=== PATIENT | male | born 1975 ===

== ENCOUNTER 2020-02-24 23:48 | Observation (INO) | payer OTHER ==
[2020-02-25] MEDS ORDERED: Ondansetron 4 MG/2 ML SDV IVPUSH ONE (00:05)
[2020-02-25] MEDS ORDERED: Sodium Chloride 0.9% 10 ML Syringe FLUSH PRN (00:05)
[2020-02-25] MEDS ORDERED: Ketorolac 15 MG/ML SDV IVPUSH ONE (00:05)
[2020-02-25] MEDS ORDERED: Sodium Chloride 0.9% 2.5 ML Syringe FLUSH PRN (00:05)
--- NOTE | 2020-02-25 00:08 | EDM.PDOC ---
ED HPI GENERAL MEDICAL PROBLEM - General Chief Complaint: Genitourinary Problem Stated Complaint: VOMITTING Time Seen by Provider: 02/24/20 23:54 - History of Present Illness INITIAL COMMENTS - FREE TEXT/NARRATIVE: History of present illness: [] About a week ago the patient started having pain in the right flank. It is become colicky and severe. Sentiment and associated with diaphoresis and nausea. Patient has a history of kidney stones in the remote past not sure if he is ever had a CT. Had some kind of imaging once in the remote past. Has not taken anything for pain. The patient has it sometimes had an episode that he felt like was a kidney stone in the past with a hot shower and plenty of fluids. This will persist. Review of systems: As per history of present illness and below otherwise all systems reviewed and negative. Past medical history: As per history of present illness and as reviewed below otherwise noncontributory. Surgical history: As per history of present illness and as reviewed below otherwise noncontributory. Social history: No reported history of drug or alcohol abuse. Family history: As per history of present illness and as reviewed below otherwise noncontributory. Physical exam: Constitutional - well developed, well-nourished and in no acute distress HEENT - normocephalic, no evidence of trauma - external nose and mouth normal - no mass in neck and no JVD - mucosae moist EYES - full EOM, PERRL, no icterus - no evidence of inflammation, injection, or drainage Respiratory - no respiratory distress, equal bilateral expansion, lungs clear to auscultation and no abnormal lung sounds Cardiovascular - Regular Rhythm with S1 and S2 appreciated and no murmur, gallop or rub. GI - abdomen soft without distension or organomegaly - normal bowel sounds - no guard or rebound Musculoskeletal no gross deformity of long bones or joints - no tenderness, swelling or edema Neurologic - Alert and oriented times four - CN II-XII grossly intact - motor sensory and coordination symmetrically normal Psychiatric - appropriate mood and affect with normal thought content Hematologic - No petechiae or purpura - mucosa appropriate color and sclera not pale - normal nail bed color and refill Integument - no rash or evidence of trauma - normal turgor Diagnostics: [] Therapeutics: [] Impression: [] Plan: [] Definitive disposition and diagnosis as appropriate pending reevaluation and review of above. right lower abdomen, right flank Pain Score (Numeric/FACES): 10 - Related Data Allergies Allergy/AdvReac Type Severity Reaction Status Date / Time Penicillins Allergy Cannot Verified 02/24/20 23:55 Remember Home Meds: Home Meds Hydrocodone/Acetaminophen [[place] 10-325 Tablet] 1 each PO Q4HR PRN #20 tablet 02/25/20 [Rx] Ondansetron [Zofran ODT] 4 mg PO Q6H PRN #12 tab.dis 02/25/20 [Rx] Past Medical History - Past Health History Medical/Surgical History: Denies Medical/Surgical History Genitourinary History: Reports: Renal Calculus - Past Surgical History HEENT Surgical History: Reports: Tonsillectomy Social & Family History - Family History Family Medical History: Noncontributory - Tobacco Use Smoking Status *Q: Current Every Day Smoker Years of Tobacco use: 25 Packs/Tins Daily: 0 - Recreational Drug Use Recreational Drug Use: No ED ROS GENERAL - Review of Systems Review Of Systems: Comprehensive ROS is negative, except as noted in HPI. ED EXAM, GENERAL - Physical Exam Exam: See Below Free Text/Narrative:: My physical exam as in the HPI Course - Vital Signs Text/Narrative:: 243 patient is requiring more medicine than the stone is quite proximal. It is completely obstructing and the patient has not urinated. Discussed with Dr. Streeter and admitted to Dr. Oliveros. Last Recorded V/S: Last Vital Signs Temp 96.6 F L 02/24/20 23:52 Pulse 89 02/24/20 23:52 Resp 18 02/24/20 23:52 BP 182/120 H 02/24/20 23:52 Pulse Ox 96 02/24/20 23:52 - Orders/Labs/Meds Orders: Active Orders 24 hr Category Date Time Status Admission Status [Patient Status] [ADT] Stat ADT 02/25/20 02:40 Ordered Notify Provider Consults [RC] ASDIRECTED Care 02/25/20 02:43 Ordered Consult to Physician [CONS] Stat Cons 02/25/20 02:42 Ordered UA W/ELAINA RFLX IF INDICATED [URIN] Stat Lab 02/25/20 00:05 Ordered Sodium Chloride 0.9% [Normal Saline] 1,000 ml Med 02/25/20 02:45 Active IV ASDIRECTED Sodium Chloride 0.9% [Saline Flush] Med 02/25/20 00:05 Active 10 ml FLUSH ASDIRECTED PRN Sodium Chloride 0.9% [Saline Flush] Med 02/25/20 00:05 Active 2.5 ml FLUSH ASDIRECTED PRN Saline Lock Insert [OM.PC] Stat Oth 02/25/20 00:05 Ordered Medication Orders Sodium Chloride (Normal Saline) 1,000 mls @ 500 mls/hr IV ASDIRECTED DEVIN Sodium Chloride (Saline Flush) 10 ml FLUSH ASDIRECTED PRN PRN Reason: Keep Vein Open Sodium Chloride (Saline Flush) 2.5 ml FLUSH ASDIRECTED PRN PRN Reason: Keep Vein Open Labs: Laboratory Tests 02/25/20 02/25/20 02/25/20 Range/Units 00:01 00:01 00:01 WBC 10.36 (4.0-11.0) K/uL RBC 4.65 (4.50-5.90) M/uL Hgb 14.8 (13.0-17.0) g/dL Hct 42.2 (38.0-50.0) % MCV 90.8 (80.0-98.0) fL MCH 31.8 (27.0-32.0) pg MCHC 35.1 (31.0-37.0) g/dL RDW Std Deviation 41.0 (28.0-62.0) fl RDW Coeff of Charmaine 13 (11.0-15.0) % Plt Count 230 (150-400) K/uL MPV 10.90 (7.40-12.00) fL Neut % (Auto) 57.6 (48.0-80.0) % Lymph % (Auto) 30.5 (16.0-40.0) % [place] % (Auto) 8.7 (0.0-15.0) % Eos % (Auto) 2.7 (0.0-7.0) % Baso % (Auto) 0.5 (0.0-1.5) % Neut # (Auto) 6.0 H (1.4-5.7) K/uL Lymph # (Auto) 3.2 H (0.6-2.4) K/uL [place] # (Auto) 0.9 H (0.0-0.8) K/uL Eos # (Auto) 0.3 (0.0-0.7) K/uL Baso # (Auto) 0.1 (0.0-0.1) K/uL Sodium 141 (136-148) mmol/L Potassium 4.4 (3.5-5.1) mmol/L Chloride 106 (98-107) mmol/L Carbon Dioxide 26.3 (21.0-32.0) mmol/L BUN 18 (7.0-18.0) mg/dL Creatinine 1.3 (0.8-1.3) mg/dL Est Cr Clr Drug Dosing 77.93 mL/min Estimated GFR (MDRD) 59.4 ml/min Glucose 138 H (74-106) mg/dL Calcium 9.1 (8.5-10.1) mg/dL Total Bilirubin 0.2 (0.2-1.0) mg/dL AST 18 (15-37) IU/L ALT 40 (14-63) IU/L Alkaline Phosphatase 91 (46-116) U/L Troponin I < 0.050 (0.000-0.056) ng/mL Total Protein 7.5 (6.4-8.2) g/dL Albumin 4.5 (3.4-5.0) g/dL Globulin 3.0 (2.6-4.0) g/dL Albumin/Globulin Ratio 1.5 (0.9-1.6) Lipase 161 (73-393) U/L Meds: Medications Generic Name Dose Route Start Last Admin Trade Name Frephilip PRN Reason Stop Dose Admin Sodium Chloride 1,000 mls @ 500 mls/hr 02/25/20 02:45 Normal Saline IV ASDIRECTED DEVIN Sodium Chloride 10 ml 02/25/20 00:05 Saline Flush FLUSH ASDIRECTED PRN Keep Vein Open Sodium Chloride 2.5 ml 02/25/20 00:05 Saline Flush FLUSH ASDIRECTED PRN Keep Vein Open Discontinued Medications Generic Name Dose Route Start Last Admin Trade Name Freq PRN Reason Stop Dose Admin Hydromorphone HCl 1 mg 02/25/20 02:39 Dilaudid IVPUSH 02/25/20 02:40 ONETIME ONE Ketorolac Tromethamine 15 mg 02/25/20 00:05 02/25/20 00:20 Toradol IVPUSH 02/25/20 00:06 15 mg ONETIME ONE Administration Ondansetron HCl 4 mg 02/25/20 00:05 02/25/20 00:20 Zofran IVPUSH 02/25/20 00:06 4 mg ONETIME ONE Administration Departure - Departure Time of Disposition: 01:43 Disposition: Refer to Observation Condition: Good Clinical Impression: Kidney stone - Discharge Information Prescriptions: Hydrocodone/Acetaminophen [[place] 10-325 Tablet] 1 each PO Q4HR PRN #20 tablet PRN Reason: Pain Ondansetron [Zofran ODT] 4 mg PO Q6H PRN #12 tab.dis PRN Reason: Nausea Instructions: Kidney Stones, Renal Colic Referrals: PCP,None [Primary Care Provider] - Namrata Streeter MD [Physician] - Forms: ED Department Discharge Additional Instructions: [facility] - Primary Care [address] [place] [address] [place] [address] [facility] - Urology [address] [place] [address] The following information is given to patients seen in the emergency department who are being discharged to home. This information is to outline your options for follow-up care. We provide all patients seen in our emergency department with a follow-up referral. The need for follow-up, as well as the timing and circumstances, are variable depending upon the specifics of your emergency department visit. If you don't have a primary care physician on staff, we will provide you with a referral. We always advise you to contact your personal physician following an emergency department visit to inform them of the circumstance of the visit and for follow-up with them and/or the need for any referrals to a consulting specialist. The emergency department will also refer you to a specialist when appropriate. This referral assures that you have the opportunity for follow-up care with a specialist. All of these measure are taken in an effort to provide you with optimal care, which includes your follow-up. Under all circumstances we always encourage you to contact your private physician who remains a resource for coordinating your care. When calling for follow-up care, please make the office aware that this follow-up is from your recent emergency room visit. If for any reason you are refused follow-up, please contact the [facility] Emergency Department at and asked to speak to the emergency department charge nurse. Sepsis Event Note (ED) - Evaluation Sepsis Screening Result: No Definite Risk - Focused Exam Vital Signs: Vital Signs Temp Pulse Resp BP Pulse Ox 02/24/20 23:52 96.6 F L 89 18 182/120 H 96 - My Orders Last 24 Hours: My Active Orders 02/25/20 00:05 UA W/ELAINA RFLX IF INDICATED [URIN] Stat Sodium Chloride 0.9% [Saline Flush] 10 ml FLUSH ASDIRECTED PRN Sodium Chloride 0.9% [Saline Flush] 2.5 ml FLUSH ASDIRECTED PRN Saline Lock Insert [OM.PC] Stat 02/25/20 02:40 Admission Status [Patient Status] [ADT] Stat 02/25/20 02:42 Consult to Physician [CONS] Stat 02/25/20 02:43 Notify Provider Consults [RC] ASDIRECTED 02/25/20 02:45 Sodium Chloride 0.9% [Normal Saline] 1,000 ml IV ASDIRECTED - Assessment/Plan Last 24 Hours: My Active Orders 02/25/20 00:05 UA W/ELAINA RFLX IF INDICATED [URIN] Stat Sodium Chloride 0.9% [Saline Flush] 10 ml FLUSH ASDIRECTED PRN Sodium Chloride 0.9% [Saline Flush] 2.5 ml FLUSH ASDIRECTED PRN Saline Lock Insert [OM.PC] Stat 02/25/20 02:40 Admission Status [Patient Status] [ADT] Stat 02/25/20 02:42 Consult to Physician [CONS] Stat 02/25/20 02:43 Notify Provider Consults [RC] ASDIRECTED 02/25/20 02:45 Sodium Chloride 0.9% [Normal Saline] 1,000 ml IV ASDIRECTED
[2020-02-25 00:32] LABS: CARBON DIOXIDE,CO2 26.3 mmol/L (21.0-32.0); POTASSIUM,K 4.4 mmol/L (3.5-5.1)
--- NOTE | 2020-02-25 01:12 | CT ---
INDICATION: RIGHT FLANK PAIN CT ABDOMEN AND PELVIS WITHOUT CONTRAST TECHNIQUE: Multidetector CT imaging was performed through the abdomen and pelvis without intravenous contrast administration. Coronal and sagittal reconstructions were generated. COMPARISON: None. FINDINGS: Lower chest: Lung bases are clear. Liver: Within normal limits. Gallbladder and bile ducts: Partially contracted gallbladder. No gallbladder wall thickening or calcified gallstones. No biliary dilation identified. Pancreas: Unremarkable. Spleen: Normal. Adrenals: No nodules or masses. Kidneys, ureters, and urinary bladder: Obstructing 3.5 millimeter stone at the right ureteral pelvic junction producing mild right hydronephrosis. No other urinary tract stones identified. Partially exophytic 1.5 centimeter mildly hyperdense cyst versus solid mass along the lateral aspect of the mid right kidney. No bladder mass or definite wall thickening. Gastrointestinal tract: Normal caliber bowel without wall thickening. The appendix is normal. Vascular structures: Normal caliber abdominal aorta with mild atherosclerotic calcifications. Peritoneum: No free air, abscess, or significant free fluid. Lymph nodes: No pathologically enlarged nodes identified. Reproductive organs: No pelvic masses. Bones: 6 lumbar type vertebrae, a normal variant, with sacralization of L6. 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 IMPRESSION: 1. Mildly obstructing 3.5 millimeter stone at the right ureteropelvic junction producing mild right hydronephrosis. 2. Exophytic 1.5 centimeter hyperdense cyst versus solid mass along the lateral aspect of the mid right kidney. Outpatient renal ultrasound or CT urogram is recommended for further evaluation. 3. Nonacute additional findings as detailed above. LEROY GAMEZ MD [employer] Dictated by Gianni Gamez MD @ 02/25/2020 1:17:44 AM Dictated by: Gianni Gamez MD @ 02/25/2020 01:18:17 (Electronically Signed)
[2020-02-25] MEDS ORDERED: HYDROmorphone 1 MG/ML Syringe IVPUSH ONE (02:39)
[2020-02-25] MEDS ORDERED: HYDROmorphone 1 MG/ML Syringe ONE (02:40)
[2020-02-25] MEDS ORDERED: Sodium Chloride 0.9% 1,000 ML IV SCH (02:45)
[2020-02-25] MEDS ORDERED: HYDROmorphone 1 MG/ML Syringe IVPUSH PRN (06:25)
[2020-02-25] MEDS ORDERED: cefTRIAXone 1 GM Vial IVPUSH SCH (10:30)
--- NOTE | 2020-02-25 11:14 | PCM.HP.2 ---
<Alexis Mayo - Last Filed: 02/25/20 14:35> H&P History of Present Illness - General Date of Service: 02/25/20 Admit Problem/Dx: Admission Diagnosis/Problem Admission Diagnosis/Problem Ureteric colic History Limitations: Reports: No Limitations - History of Present Illness Initial Comments - Free Text/Narative: 44 year old male admitted for ureteric colic. Patient states that he started to develop right flank pain one week ago that had become increasingly severe colicky. Patient states that he does have a history of kidney stones. Patient denied fever, chills or nausea. Patient tried to use AZO and take hot showers to relieve pain. Patient had a CT abdo during hospital stay which showed a 3.5mm stone in the right ureteropelvic junction. Dr Streeter was consulted and he recommended patient be discharged and follow up as an outpatient. Patient was discharged home the same day on Percocet for pain and Keflex due to having Nitrite positive UA. right lower abdomen, right flank Pain Score (Numeric/FACES): 3 - Related Data Allergies/Adverse Reactions: Allergies Allergy/AdvReac Type Severity Reaction Status Date / Time Penicillins Allergy Cannot Verified 02/25/20 05:20 Remember Home Medications: Home Meds Acetaminophen/oxyCODONE [Percocet 325-5 MG] 1 each PO Q8HR #6 tab 02/25/20 [Rx] Cranberry Ext/C/L. Sporogenes [Azo Cranberry] 2 each PO BEDTIME 02/25/20 [History] cephALEXin [Keflex] 500 mg PO BID 7 Days #14 capsule 02/25/20 [Rx] Past Medical History - Past Health History Medical/Surgical History: Denies Medical/Surgical History Genitourinary History: Reports: Renal Calculus - Past Surgical History HEENT Surgical History: Reports: Tonsillectomy Social & Family History - Family History Family Medical History: Noncontributory - Tobacco Use Smoking Status *Q: Current Every Day Smoker Years of Tobacco use: 30 Packs/Tins Daily: 1 Tobacco Use Comment: had quit smoking in the past, currently using vaping Second Hand Smoke Exposure: No - Caffeine Use Caffeine Use: Reports: Coffee, Energy Drinks, Soda, Tea - Recreational Drug Use Recreational Drug Use: No H&P Review of Systems - Review of Systems: Review Of Systems: See Below General: Denies: Fever, Chills, Fatigue HEENT: Denies: Headaches, Visual Changes Pulmonary: Denies: Shortness of Breath, Wheezing, Pleuritic Chest Pain, Cough Cardiovascular: Denies: Chest Pain, Palpitations, Dyspnea on Exertion Gastrointestinal: Reports: Abdominal Pain Genitourinary: Reports: Flank Pain (right flank pain) Musculoskeletal: Denies: Back Pain Neurological: Denies: Confusion, Dizziness Exam - Exam Exam: See Below - Vital Signs Vital Signs: Last Vital Signs Temp 98.4 F 02/25/20 07:50 Pulse 65 02/25/20 07:50 Resp 18 02/25/20 07:50 BP 151/81 H 02/25/20 07:50 Pulse Ox 95 02/25/20 07:50 Weight: 90.5 kg - Exam General: Alert, Oriented HEENT: EOMI Lungs: Clear to Auscultation, Normal Respiratory Effort Cardiovascular: Regular Rate, Regular Rhythm GI/Abdominal Exam: Soft, Non-Tender, Rigid. No: Guarding, Rebound, Tender Back Exam: Normal Inspection, CVA Tenderness (R) (patients states pain is less than when admitted). No: CVA Tenderness (L) Neuro Extensive - Mental Status: Alert, Oriented x3, Normal Mood/Affect - Patient Data Lab Results Last 24 hrs: Laboratory Results - last 24 hr 02/25/20 02/25/20 02/25/20 Range/Units 00:01 00:01 00:01 WBC 10.36 (4.0-11.0) K/uL RBC 4.65 (4.50-5.90) M/uL Hgb 14.8 (13.0-17.0) g/dL Hct 42.2 (38.0-50.0) % MCV 90.8 (80.0-98.0) fL MCH 31.8 (27.0-32.0) pg MCHC 35.1 (31.0-37.0) g/dL RDW Std Deviation 41.0 (28.0-62.0) fl RDW Coeff of Charmaine 13 (11.0-15.0) % Plt Count 230 (150-400) K/uL MPV 10.90 (7.40-12.00) fL Neut % (Auto) 57.6 (48.0-80.0) % Lymph % (Auto) 30.5 (16.0-40.0) % [place] % (Auto) 8.7 (0.0-15.0) % Eos % (Auto) 2.7 (0.0-7.0) % Baso % (Auto) 0.5 (0.0-1.5) % Neut # (Auto) 6.0 H (1.4-5.7) K/uL Lymph # (Auto) 3.2 H (0.6-2.4) K/uL [place] # (Auto) 0.9 H (0.0-0.8) K/uL Eos # (Auto) 0.3 (0.0-0.7) K/uL Baso # (Auto) 0.1 (0.0-0.1) K/uL Sodium 141 (136-148) mmol/L Potassium 4.4 (3.5-5.1) mmol/L Chloride 106 (98-107) mmol/L Carbon Dioxide 26.3 (21.0-32.0) mmol/L BUN 18 (7.0-18.0) mg/dL Creatinine 1.3 (0.8-1.3) mg/dL Est Cr Clr Drug Dosing 77.93 mL/min Estimated GFR (MDRD) 59.4 ml/min Glucose 138 H (74-106) mg/dL Calcium 9.1 (8.5-10.1) mg/dL Total Bilirubin 0.2 (0.2-1.0) mg/dL AST 18 (15-37) IU/L ALT 40 (14-63) IU/L Alkaline Phosphatase 91 (46-116) U/L Troponin I < 0.050 (0.000-0.056) ng/mL Total Protein 7.5 (6.4-8.2) g/dL Albumin 4.5 (3.4-5.0) g/dL Globulin 3.0 (2.6-4.0) g/dL Albumin/Globulin Ratio 1.5 (0.9-1.6) Lipase 161 (73-393) U/L Urine Color Urine Appearance Urine pH (5.0-8.0) Ur Specific [place] (1.001-1.035) Urine Protein (NEGATIVE) mg/dL Urine Glucose (UA) (NEGATIVE) mg/dL Urine Ketones (NEGATIVE) mg/dL Urine Occult Blood (NEGATIVE) Urine Nitrite (NEGATIVE) Urine Bilirubin (NEGATIVE) Urine Urobilinogen (<2.0) EU/dL Ur Leukocyte Esterase (NEGATIVE) Urine RBC (0-2/HPF) Urine WBC (0-5/HPF) Ur Epithelial Cells (NONE-FEW) Amorphous Sediment (NEGATIVE) Urine Bacteria (NEGATIVE) Urine Mucus (NONE-MOD) SARS Virus RNA (PCR) (NEGATIVE) 02/25/20 02/25/20 Range/Units 03:07 06:00 WBC (4.0-11.0) K/uL RBC (4.50-5.90) M/uL Hgb (13.0-17.0) g/dL Hct (38.0-50.0) % MCV (80.0-98.0) fL MCH (27.0-32.0) pg MCHC (31.0-37.0) g/dL RDW Std Deviation (28.0-62.0) fl RDW Coeff of Charmaine (11.0-15.0) % Plt Count (150-400) K/uL MPV (7.40-12.00) fL Neut % (Auto) (48.0-80.0) % Lymph % (Auto) (16.0-40.0) % [place] % (Auto) (0.0-15.0) % Eos % (Auto) (0.0-7.0) % Baso % (Auto) (0.0-1.5) % Neut # (Auto) (1.4-5.7) K/uL Lymph # (Auto) (0.6-2.4) K/uL [place] # (Auto) (0.0-0.8) K/uL Eos # (Auto) (0.0-0.7) K/uL Baso # (Auto) (0.0-0.1) K/uL Sodium (136-148) mmol/L Potassium (3.5-5.1) mmol/L Chloride (98-107) mmol/L Carbon Dioxide (21.0-32.0) mmol/L BUN (7.0-18.0) mg/dL Creatinine (0.8-1.3) mg/dL Est Cr Clr Drug Dosing mL/min Estimated GFR (MDRD) ml/min Glucose (74-106) mg/dL Calcium (8.5-10.1) mg/dL Total Bilirubin (0.2-1.0) mg/dL AST (15-37) IU/L ALT (14-63) IU/L Alkaline Phosphatase (46-116) U/L Troponin I (0.000-0.056) ng/mL Total Protein (6.4-8.2) g/dL Albumin (3.4-5.0) g/dL Globulin (2.6-4.0) g/dL Albumin/Globulin Ratio (0.9-1.6) Lipase (73-393) U/L Urine Color YELLOW Urine Appearance CLEAR Urine pH 5.0 (5.0-8.0) Ur Specific [place] 1.020 (1.001-1.035) Urine Protein NEGATIVE (NEGATIVE) mg/dL Urine Glucose (UA) NEGATIVE (NEGATIVE) mg/dL Urine Ketones NEGATIVE (NEGATIVE) mg/dL Urine Occult Blood NEGATIVE (NEGATIVE) Urine Nitrite POSITIVE H (NEGATIVE) Urine Bilirubin NEGATIVE (NEGATIVE) Urine Urobilinogen 1.0 (<2.0) EU/dL Ur Leukocyte Esterase NEGATIVE (NEGATIVE) Urine RBC NONE SEEN (0-2/HPF) Urine WBC 0-2 (0-5/HPF) Ur Epithelial Cells NOT SEEN (NONE-FEW) Amorphous Sediment RARE (NEGATIVE) Urine Bacteria FEW (NEGATIVE) Urine Mucus RARE (NONE-MOD) SARS Virus RNA (PCR) NEGATIVE (NEGATIVE) Result Diagrams: 02/25/20 00:01 02/25/20 00:01 Sepsis Event Note - Evaluation Sepsis Screening Result: No Definite Risk - Focused Exam Vital Signs: Vital Signs Temp Pulse Resp BP Pulse Ox 02/25/20 07:50 98.4 F 65 18 151/81 H 95 02/25/20 05:15 98.5 F 61 20 148/91 H 96 02/25/20 05:00 89 20 147/78 H 98 02/25/20 02:45 80 20 149/92 H 98 02/24/20 23:52 96.6 F L 89 18 182/120 H 96 Problem List Initiated/Reviewed/Updated: Yes Orders Last 24hrs: Active Orders 24 hr Category Date Time Status Admission Status [Patient Status] [ADT] Stat ADT 02/25/20 02:40 Active Notify Provider Consults [RC] ASDIRECTED Care 02/25/20 02:43 Active Consult to Physician [CONS] Stat Cons 02/25/20 02:42 Active Nothing Per Oral Diet [DIET] Diet 02/25/20 Breakfast Active BMP [BASIC METABOLIC PANEL,BMP] [CHEM] AM Lab 02/26/20 05:11 Ordered CBC WITH AUTO DIFF [HEME] AM Lab 02/26/20 05:11 Ordered CULTURE URINE [RM] Routine Lab 02/25/20 10:31 Ordered HYDROmorphone [Dilaudid] Med 02/25/20 06:25 Active 1 mg IVPUSH Q3H PRN Sodium Chloride 0.9% [Saline Flush] Med 02/25/20 00:05 Active 10 ml FLUSH ASDIRECTED PRN Sodium Chloride 0.9% [Saline Flush] Med 02/25/20 00:05 Active 2.5 ml FLUSH ASDIRECTED PRN cefTRIAXone [Rocephin] Med 02/25/20 10:30 Ordered 1 gm IVPUSH Q24H Saline Lock Insert [OM.PC] Stat Oth 02/25/20 00:05 Ordered Medication Orders Ceftriaxone Sodium (Rocephin) 1 gm IVPUSH Q24H DEVIN Hydromorphone HCl (Dilaudid) 1 mg IVPUSH Q3H PRN PRN Reason: Pain Last Admin: 02/25/20 10:18 Dose: 1 mg Documented by: PROFLUC Sodium Chloride (Saline Flush) 10 ml FLUSH ASDIRECTED PRN PRN Reason: Keep Vein Open Sodium Chloride (Saline Flush) 2.5 ml FLUSH ASDIRECTED PRN PRN Reason: Keep Vein Open Ureteric Colic- Patient was treated with ketorolac and Dilaudid for pain. Given one dose of Rocephin in the ED. Patient discharged with Keflex 500mg BID X 7days and Percocet 5mg/325mg Q8HR PRN #6 Tablets <Declan Oliveros - Last Filed: 03/10/20 11:44> H&P History of Present Illness - General Admit Problem/Dx: Admission Diagnosis/Problem Admission Diagnosis/Problem Ureteric colic Exam - Vital Signs Vital Signs: Last Vital Signs Temp 36.8 C 02/25/20 12:23 Pulse 68 02/25/20 12:23 Resp 12 02/25/20 12:23 BP 135/79 02/25/20 12:23 Pulse Ox 94 L 02/25/20 12:23 - Patient Data Result Diagrams: 02/25/20 00:01 02/25/20 00:01 - Free Text/Narrative Note: I have seen and evaluated the patient. I have discussed findings and treatment plan with resident. I agree with the assessment and plan as outlined in the following note.
[2020-02-25] MEDS ORDERED: cefTRIAXone 1 GM in Premix Bag 1 BAG IV SCH (11:15)
== END 2020-02-25 14:00 | disposition home or self-care (01) ==
LOC: MW.ED 23:48 → MW.MS 02-25 02:40
PROVIDERS: ADMIT Internal Medicine; ATTEND Internal Medicine
DX: N20.0 Calculus of kidney (principal); F17.210 Nicotine dependence, cigarettes, uncomplicated; Z87.442 Personal history of urinary calculi; Z20.828 Contact with and (suspected) exposure to other viral communicable diseases; Z88.0 Allergy status to penicillin
CPT/HCPCS: 36415; 74176; 80053; 81001; 83690; 84484; 85025; 87086; 87635; 96361; 96374; 96375; 96376; 99285; G0378; J0696; J1170; J1885; J2405; J7030; 99234; 99283; U0002